=== PATIENT | female | born 1945 | race Caucasian/White ===

== ENCOUNTER 2017-10-12 12:58 | Emergency (ER) | payer OTHER ==
[~2017-10-12] VITALS: Ht 157.5 cm; Wt 74.0 kg
[2017-10-12 12:59] VITALS: BP 120/56; PULSE 71; RESP 18; TEMP 98.2; O2SAT 98
[2017-10-12] MEDS ORDERED: SODIUM CHLOR 0.9% 1000 ML INJ 1,000 ML IV SCH (13:23)
[2017-10-12] MEDS ORDERED: FAMOTIDINE 20 MG/2 ML VIAL IV PUSH ONE (13:30)
[2017-10-12] MEDS ORDERED: ONDANSETRON HCL 4 MG/2 ML VIAL IVP ONE (13:30)
[2017-10-12] MEDS ORDERED: SODIUM CHLORIDE 0.9% FLUSH 10 ML FLUSH IV FLUSH PRN (13:30)
[2017-10-12] MEDS ORDERED: HYDROmorphone HCL PF 2 MG/ML VIAL IV PUSH ONE (13:30)
[2017-10-12] MEDS ORDERED: GABA100C4 PO (13:49)
[2017-10-12] MEDS ORDERED: LISI-519 PO (13:49)
[2017-10-12] MEDS ORDERED: ATOR80TA45 PO (13:49)
[2017-10-12] MEDS ORDERED: ASPI81TA23 PO (13:49)
[2017-10-12] MEDS ORDERED: HYDR-3583 PO (13:49)
[2017-10-12] MEDS ORDERED: BIOT1CHW (13:49)
[2017-10-12] MEDS ORDERED: COMPTAB11 PO (13:49)
[2017-10-12] MEDS ORDERED: DEXT1TAB18 PO (13:49)
[2017-10-12] MEDS ORDERED: VITA10002 PO (13:49)
[2017-10-12] MEDS ORDERED: MULTTAB67 PO (13:49)
[2017-10-12] MEDS ORDERED: CIPR500T2 PO (13:49)
[2017-10-12] MEDS ORDERED: GINK60TA10 (13:49)
--- NOTE | 2017-10-12 13:52 | PD ---
HPI Chief Complaint: GI Complaint Time Seen by Provider: 13:17 Travel History International Travel<30 days: No Contact w/Intl Traveler<30days: No Traveled to known affect area: No History of Present Illness HPI 72-year-old female complains of abdominal pain, nausea vomiting. Patient states the symptoms started 4 days ago. Patient states that the pain cramping pain and sharp pain diffuse over the abdomen. Patient denies any pain radiation. Patient denies any fever chills. Patient denies any dysuria or frequency. Patient denies vaginal discharge or bleeding. Patient denies any back pain. On a scale of 1-10 the pain is a 10. Patient status post tubal ligation in the past. PFSH Past Medical History Arthritis: Yes High Cholesterol: Yes Diabetes: Yes Patient Takes Glucophage: No Hypertension: Yes Medical other: Yes (fibromyalgia) Tetanus Vaccination: < 5 Years ?: Not Social History Alcohol Use: No Tobacco Use: No Substance Use: No Allergies-Medications (Allergen,Severity, Reaction): Coded Allergies: No Known Allergies (Unverified , 10/12/17) Reported Meds & Prescriptions Reported Meds & Active Scripts Active Bentyl (Dicyclomine HCl) 10 Mg Cap 10 Mg PO TID PRN Phenergan (Promethazine HCl) 25 Mg Tablet 25 Mg PO Q6H PRN Reported Gabapentin 100 Mg Cap 200 Mg PO BID Atorvastatin (Atorvastatin Calcium) 80 Mg Tab 80 Mg PO HS Lisinopril 5 Mg Tab 5 Mg PO DAILY Ciprofloxacin (Ciprofloxacin HCl) 500 Mg Tab 500 Mg PO BID Multiple Vitamin 1 Tab 1 Tab PO DAILY Mucinex DM Maximum Strength (Dextromethorphan-Guaifenesin ER 12 HR) 60-1,200 Mg Tab 1 Tab PO BID PRN Hydrocodone-Acetaminophen 10-325 mg Tab 1 Tab PO TID PRN Hair Skin & Nails (Biotin W/ Vitamins C & E) 1,250-7.5-7.5 Mcg-Mg-Unit Chew Ginkgo Biloba (Ginkgo Biloba [place] Extract) 60 Mg Tablet Complex B-100 (B-Complex W/Biotin & Folic Acid) 1 Tab 1 Tab PO DAILY Vitamin B-12 (Cyanocobalamin) 1,000 Mcg Tab 1,000 Mcg PO DAILY Aspirin EC (Aspirin) 81 Mg Tabdr 81 Mg PO DAILY Review of Systems General / Constitutional: No: Fever Eyes: No: Visual changes HENT: No: Headaches Cardiovascular: No: Chest Pain or Discomfort Respiratory: No: Shortness of Breath Gastrointestinal: Positive: Nausea, Vomiting, Abdominal Pain Genitourinary: No: Dysuria Musculoskeletal: No: Pain Skin: No Rash Neurologic: No: Weakness Psychiatric: No: Depression Endocrine: No: Polydipsia Hematologic/Lymphatic: No: Easy Bruising Physical Exam Narrative GENERAL: Well-nourished, well-developed patient. SKIN: Focused skin assessment warm/dry. HEAD: Normocephalic. EYES: No scleral icterus. No injection or drainage. NECK: Supple, trachea midline. No JVD or lymphadenopathy. CARDIOVASCULAR: Regular rate and rhythm without murmurs, gallops, or rubs. RESPIRATORY: Breath sounds equal bilaterally. No accessory muscle use. GASTROINTESTINAL: Abdomen soft, nondistended. Patient has moderate diffuse tenderness over the abdomen. No rebound tenderness. No mass. MUSCULOSKELETAL: No cyanosis, or edema. BACK: Nontender without obvious deformity. No CVA tenderness. Neurologic exam normal. Data Data Last Documented VS Vital Signs Date Time Temp Pulse Resp B/P (MAP) Pulse Ox O2 Delivery O2 Flow Rate FiO2 10/12/17 12:59 98.2 71 18 120/56 (77) 98 Room Air Orders Orders Complete Blood Count With Diff (10/12/17 13:23) Comprehensive Metabolic Panel (10/12/17 13:23) Lipase (10/12/17 13:23) Prothrombin Time / Inr (Pt) (10/12/17 13:23) Act Partial Throm Time (Ptt) (10/12/17 13:23) Urinalysis - C+S If Indicated (10/12/17 13:23) Ct Abd/Pel W Iv Contrast(Rout) (10/12/17 13:23) Iv Access Insert/Monitor (10/12/17 13:23) Ecg Monitoring (10/12/17 13:23) Oximetry (10/12/17 13:23) Ondansetron Inj (Zofran Inj) (10/12/17 13:30) Sodium Chlor 0.9% 1000 Ml Inj (Ns 1000 M (10/12/17 13:23) Sodium Chloride 0.9% Flush (Ns Flush) (10/12/17 13:30) Electrocardiogram (10/12/17 13:23) Famotidine Inj (Pepcid Inj) (10/12/17 13:30) Hydromorphone Pf Inj (Dilaudid Pf Inj) (10/12/17 13:30) Iohexol 350 Inj (Omnipaque 350 Inj) (10/12/17 15:18) Sodium Chlorid 0.9% 500 Ml Inj (Ns 500 M (10/12/17 16:00) Metoclopramide Inj (Reglan Inj) (10/12/17 16:00) Diphenhydramine Inj (Benadryl Inj) (10/12/17 16:00) Labs Laboratory Tests Test 10/12/17 13:35 White Blood Count 9.0 TH/MM3 Red Blood Count 4.54 MIL/MM3 Hemoglobin 13.5 GM/DL Hematocrit 40.1 % Mean Corpuscular Volume 88.4 FL Mean Corpuscular Hemoglobin 29.8 PG Mean Corpuscular Hemoglobin Concent 33.7 % Red Cell Distribution Width 13.0 % Platelet Count 295 TH/MM3 Mean Platelet Volume 9.3 FL Neutrophils (%) (Auto) 64.6 % Lymphocytes (%) (Auto) 27.8 % Monocytes (%) (Auto) 6.2 % Eosinophils (%) (Auto) 0.9 % Basophils (%) (Auto) 0.5 % Neutrophils # (Auto) 5.8 TH/MM3 Lymphocytes # (Auto) 2.5 TH/MM3 Monocytes # (Auto) 0.6 TH/MM3 Eosinophils # (Auto) 0.1 TH/MM3 Basophils # (Auto) 0.0 TH/MM3 CBC Comment DIFF FINAL Differential Comment Prothrombin Time 10.8 SEC Prothromb Time International Ratio 1.1 RATIO Activated Partial Thromboplast Time 27.8 SEC Blood Urea Nitrogen 15 MG/DL Creatinine 0.65 MG/DL Random Glucose 92 MG/DL Total Protein 7.8 GM/DL Albumin 4.2 GM/DL Calcium Level 10.0 MG/DL Alkaline Phosphatase 101 U/L Aspartate Amino Transf (AST/SGOT) 19 U/L Alanine Aminotransferase (ALT/SGPT) 32 U/L Total Bilirubin 0.6 MG/DL Sodium Level 142 MEQ/L Potassium Level 3.9 MEQ/L Chloride Level 108 MEQ/L Carbon Dioxide Level 26.1 MEQ/L Anion Gap 8 MEQ/L Estimat Glomerular Filtration Rate 90 ML/MIN Lipase 108 U/L [facility] Medical Decision Making Medical Screen Exam Complete: Yes Emergency Medical Condition: Yes Interpretation(s) Last Impressions Abdomen/Pelvis CT 10/12/17 1323 Signed Impressions: Service Date/Time: September 15:05 - CONCLUSION: Soft tissue mass above the bladder I believe is a leiomyomatous uterus. Please correlate for operative history and questionable history of hysterectomy. The patient has a hysterectomy then this would be concerning for an ovarian mass. No evidence of renal obstruction. Rest of study is unremarkable.. Konrad Colby MD CBC within normal limit. CMP within normal limit. Differential Diagnosis Differential diagnosis including gastroenteritis, gastritis, PUD, pancreatitis, cholecystitis, colitis, UTI, pyelonephritis, nephrolithiasis. Narrative Course 72-year-old female with abdominal pain, nausea vomiting. Normal saline solution 1 L IV bolus. Pepcid 20 mg IV. Zofran 4 mg IV. Reglan 10 mg IV. Benadryl 25 mg IV. Diagnosis Primary Impression: Gastroenteritis Patient Instructions: General Instructions Additional Instructions: Phenergan as needed for nausea vomiting. Ental as needed for abdominal cramping. Follow-up with personal physician. Return if worse. Med/Other Pt SpecificInfo: Prescription(s) given Scripts Promethazine Supp (Phenergan Supp) 25 Mg Supp 25 MG RECTAL Q6H Y for NAUSEA OR VOMITING, #6 SUPP 0 Refills Prov: Eduardo Fernandez MD 10/12/17 Dicyclomine (Bentyl) 10 Mg Cap 10 MG PO TID Y for Bowel Management, #15 CAP 0 Refills Prov: Eduardo Fernandez MD 10/12/17 Promethazine (Phenergan) 25 Mg Tablet 25 MG PO Q6H Y for NAUSEA OR VOMITING, #15 TAB 0 Refills Prov: Eduardo Fernandez MD 10/12/17 Disposition: 01 DISCHARGE HOME Condition: Stable Eduardo Fernandez MD Oct 12, 2017 13:52
[2017-10-12 14:05] LABS: AUTOMATED NEUTROPHIL # 5.8 TH/MM3 (1.8-7.7); BASOPHIL % 0.5 % (0.0-2.0); EOSINOPHIL # 0.1 TH/MM3 (0-0.4); EOSINOPHIL % 0.9 % (0.0-4.0); HEMATOCRIT 40.1 % (35.0-46.0); HEMOGLOBIN 13.5 GM/DL (11.6-15.3); LYMPH % 27.8 % (9.0-44.0); LYMPHOCYTE # 2.5 TH/MM3 (1.0-4.8); MEAN CELL VOLUME 88.4 FL (80.0-100.0); MEAN CORPUSCULAR HEMOGLOBIN 29.8 PG (27.0-34.0); MEAN CORPUSCULAR HGB CONC 33.7 % (32.0-36.0); MEAN PLATELET VOLUME 9.3 FL (7.0-11.0); MONO % 6.2 % (0.0-8.0); MONOCYTE # 0.6 TH/MM3 (0-0.9); NEUT % 64.6 % (16.0-70.0); PLATELET COUNT 295 TH/MM3 (150-450); RED BLOOD COUNT 4.54 MIL/MM3 (4.00-5.30)
[2017-10-12 14:15] LABS: INTERNATIONAL NORMALIZED RATIO 1.1 RATIO; PROTHROMBIN TIME - PATIENT 10.8 SEC (9.8-11.6)
[2017-10-12 14:20] LABS: ALBUMIN 4.2 GM/DL (3.4-5.0); AST (GOT) 19 U/L (15-37); BICARBONATE 26.1 MEQ/L (21.0-32.0); BLOOD UREA NITROGEN 15 MG/DL (7-18); CHLORIDE 108 MEQ/L (98-107); CREATININE 0.65 MG/DL (0.50-1.00); GLOMERULAR FILTRATION RATE 90 ML/MIN (>89); GLUCOSE,RANDOM 92 MG/DL (74-106); LIPASE 108 U/L (73-393); SODIUM (NA) 142 MEQ/L (136-145)
[2017-10-12 14:23] LABS: ALKALINE PHOSPHATASE 101 U/L (45-117); ALT (GPT) 32 U/L (10-53); TOTAL BILIRUBIN ADULT 0.6 MG/DL (0.2-1.0); TOTAL PROTEIN 7.8 GM/DL (6.4-8.2)
[2017-10-12] MEDS ORDERED: IOHEXOL 350 MG/ML 10 ML VIAL (for RAD DIAG) IVCONTRAST ONE (15:18)
--- NOTE | 2017-10-12 15:26 | RADRPT ---
EXAM DATE/TIME: 10/12/2017 15:05 [facility] COMPARISON: No previous studies available for comparison. INDICATIONS : Stomach cramping, vomiting. IV CONTRAST: 93 cc Omnipaque 350 (iohexol) IV ORAL CONTRAST: No oral contrast ingested. RADIATION DOSE: 9.60 CTDIvol (mGy) MEDICAL HISTORY : None SURGICAL HISTORY : ENCOUNTER: Initial ACUITY: 1 day PAIN SCALE: 4/10 LOCATION: Bilateral abdomen TECHNIQUE: Volumetric scanning of the abdomen and pelvis was performed. Using automated exposure control and ad justment of the mA and/or kV according to patient size, radiation dose was kept as low as reasonably achievable to obtain optimal diagnostic quality images. DICOM format image data is available electro nically for review and comparison. FINDINGS: LOWER LUNGS: The visualized lower lungs are clear. LIVER: Homogeneous density without lesion. There is no dilation of the biliary tree. No calcified gallston es. SPLEEN: Normal size without lesion. PANCREAS: Within normal limits. KIDNEYS: Normal in size and shape. There is no mass, stone or hydronephrosis except for a 3 cm right renal cy st. ADRENAL GLANDS: Within normal limits. VASCULAR: There is no aortic aneurysm. BOWEL/MESENTERY: The stomach, small bowel, and colon demonstrate no acute abnormality. There is no free intraperitone al air or fluid. ABDOMINAL WALL: Within normal limits. RETROPERITONEUM: There is no lymphadenopathy. BLADDER: No wall thickening or mass. REPRODUCTIVE: The uterus is anteverted and inhomogeneous with a few calcifications likely leiomyoma. It measures 5. 5 x 8.5 cm across. On one of the history form that says hysterectomy which I don't believe is accurat e. If the patient did have a hysterectomy now be concerned that this is an actual ovarian mass. Trace free fluid in the pelvis. INGUINAL: There is no lymphadenopathy or hernia. MUSCULOSKELETAL: Degenerative facet disease lower lumbar spine CONCLUSION: Soft tissue mass above the bladder I believe is a leiomyomatous uterus. Please correlate for operativ e history and questionable history of hysterectomy. The patient has a hysterectomy then this would be concerning for an ovarian mass. No evidence of renal obstruction. Rest of study is unremarkable.. Konrad Colby MD on October 12, 2017 at 15:21 Board Certified Radiologist. This report was verified electronically.
[2017-10-12] MEDS ORDERED: PROM25TA10 PO (15:58)
[2017-10-12] MEDS ORDERED: DICY10 PO (15:59)
[2017-10-12] MEDS ORDERED: METOCLOPRAMIDE HCL 10 MG/2 ML VIAL IV PUSH ONE (16:00)
[2017-10-12] MEDS ORDERED: diphenhydrAMINE HCL 50 MG/ML VIAL IV PUSH ONE (16:00)
[2017-10-12] MEDS ORDERED: SODIUM CHLORID 0.9% 500 ML INJ 500 ML IV ONE (16:00)
[2017-10-12] MEDS ORDERED: PROM1SUP7 RECTAL (16:02)
[2017-10-12 16:27] VITALS: BP 138/81; PULSE 74; RESP 18; TEMP 98.2; O2SAT 97
[2017-10-12 17:04] VITALS: BP 137/68
--- NOTE | 2017-10-13 23:21 | EKG ---
Date Performed: 10/12/2017 Time Performed: 14:12:11 PTAGE: 72 years EKG: Sinus rhythm LOW QRS VOLTAGE IN PRECORDIAL LEADS BORDERLINE ECG NO PREVIOUS TRACING DOCTOR: Joe Cho Interpretating Date/Time 10/13/2017 23:20:00
== END 2017-10-12 17:05 | disposition home or self-care (01) ==
LOC: NEPC 12:58
DX: K52.9 Noninfective gastroenteritis and colitis, unspecified (principal); R11.2 Nausea with vomiting, unspecified; E11.9 Type 2 diabetes mellitus without complications; I10 Essential (primary) hypertension; R94.31 Abnormal electrocardiogram [ECG] [EKG]
CPT/HCPCS: 74177; 80053; 83690; 85025; 85610; 85730; 93005; 96361; 96374; 96375; 99285; J1170; J1200; J2405; J2765; J7030; J7040; Q9967